=== PATIENT | female | born 1995 | race African-American/Black ===

== ENCOUNTER 2016-06-26 19:11 | Emergency (ER) | payer OTHER ==
[~2016-06-26] VITALS: Ht 170.2 cm; Wt 50.0 kg
[2016-06-26 19:13] VITALS: BP 101/65; PULSE 98; RESP 14; TEMP 98.7; O2SAT 100
--- NOTE | 2016-06-26 19:22 | PD ---
Physical Exam Date Seen by Provider: June 26, 2016 Time Seen by Provider: 19:21 Narrative 20 YOBF N/V, ABD PAIN,SORE THROAT FOR THE PAST 2 DAYS. LMP 06/21/16 VSS AWAITING BED PLACEMENT Data Data Last Documented VS Vital Signs Date Time Temp Pulse Resp B/P Pulse Ox O2 Delivery O2 Flow Rate FiO2 06/26/16 19:13 98.7 98 14 101/65 100 Room Air MDM Medical Record Reviewed: No Supervised Visit with SAJAN: Tj Coleman June 26, 2016 19:22
[2016-06-26] MEDS ORDERED: SODIUM CHLORIDE 0.9% FLUSH 10 ML FLUSH IV FLUSH PRN (20:00)
[2016-06-26] MEDS ORDERED: FAMOTIDINE 20 MG/2 ML VIAL IV PUSH ONE (20:00)
[2016-06-26] MEDS ORDERED: ALUMINUM/MAGNESIUM/SIMETH 30 ML CUP PO ONE (20:00)
[2016-06-26] MEDS ORDERED: LIDOCAINE VISCOUS 2% SOLN 15 ML UDC PO ONE (20:00)
[2016-06-26] MEDS ORDERED: ONDANSETRON HCL 4 MG/2 ML VIAL IVP ONE (20:00)
--- NOTE | 2016-06-26 20:30 | PD ---
HPI Chief Complaint: GI Complaint Time Seen by Provider: 19:50 Travel History International Travel<30 days: No Contact w/Intl Traveler<30days: No Traveled to known affect area: No History of Present Illness HPI 20 YOBF presents with a 3 day hx of nausea, vomiting, and mild mid-abdominal pain. She reports the symptoms started with nausea after eating potato salad at work 3 days ago & progressed to several episodes of vomiting for the last 2 days. She describes the pain as dull & mild in nature, worse after eating meals. She denies fever, chills, urinary symptoms, diarrhea, or back pain. Denies any PMH, No surgical history. PFSH Past Medical History ?: Not LMP: 06/21/16 Social History Tobacco Use: No Allergies-Medications (Allergen,Severity, Reaction): Coded Allergies: No Known Allergies (Unverified , 06/26/16) Reported Meds & Prescriptions Reported Meds & Active Scripts Active Zantac (Ranitidine HCl) 150 Mg Tab 150 Mg PO BID Review of Systems Except as stated in HPI: all other systems reviewed are Neg Physical Exam Narrative GENERAL: Well appearing, no distress SKIN: Warm and dry. HEAD: Normocephalic. EYES: No scleral icterus. No injection or drainage. NECK: Supple, trachea midline. No JVD or lymphadenopathy. CARDIOVASCULAR: Regular rate and rhythm without murmurs, gallops, or rubs. RESPIRATORY: Breath sounds equal bilaterally. No accessory muscle use. GASTROINTESTINAL: Abdomen soft, nondistended, mild tenderness in mid epigastric region, no rebound, no guarding. MUSCULOSKELETAL: No cyanosis, or edema. BACK: Nontender without obvious deformity. No CVA tenderness. Data Data Last Documented VS Vital Signs Date Time Temp Pulse Resp B/P Pulse Ox O2 Delivery O2 Flow Rate FiO2 06/26/16 19:13 98.7 98 14 101/65 100 Room Air Orders Complete Blood Count With Diff (06/26/16 19:55) Comprehensive Metabolic Panel (06/26/16 19:55) Lipase (06/26/16 19:55) Iv Access Insert/Monitor (06/26/16 19:55) Ondansetron Inj (Zofran Inj) (06/26/16 20:00) Sodium Chloride 0.9% Flush (Ns Flush) (06/26/16 20:00) Famotidine Inj (Pepcid Inj) (06/26/16 20:00) Al-Mag Hy-Si 40-40-4 Mg/Ml Liq (Mag-Al P (06/26/16 20:00) Lidocaine 2% Viscous (Xylocaine 2% Visco (06/26/16 20:00) Ed Urine Pregnancytest Poc (06/26/16 19:55) Potassium Chloride (Kcl) (06/26/16 21:15) Labs Laboratory Tests Test 06/26/16 20:01 White Blood Count 9.0 TH/MM3 Red Blood Count 4.25 MIL/MM3 Hemoglobin 12.7 GM/DL Hematocrit 36.2 % Mean Corpuscular Volume 85.2 FL Mean Corpuscular Hemoglobin 29.9 PG Mean Corpuscular Hemoglobin 35.0 % Concent Red Cell Distribution Width 13.1 % Platelet Count 273 TH/MM3 Mean Platelet Volume 8.6 FL Neutrophils (%) (Auto) 70.9 % Lymphocytes (%) (Auto) 18.6 % Monocytes (%) (Auto) 8.8 % Eosinophils (%) (Auto) 1.5 % Basophils (%) (Auto) 0.2 % Neutrophils # (Auto) 6.4 TH/MM3 Lymphocytes # (Auto) 1.7 TH/MM3 Monocytes # (Auto) 0.8 TH/MM3 Eosinophils # (Auto) 0.1 TH/MM3 Basophils # (Auto) 0.0 TH/MM3 CBC Comment DIFF FINAL Differential Comment Sodium Level 140 MEQ/L Potassium Level 3.1 MEQ/L Chloride Level 104 MEQ/L Carbon Dioxide Level 26.3 MEQ/L Anion Gap 10 MEQ/L Blood Urea Nitrogen 6 MG/DL Creatinine 0.81 MG/DL Estimat Glomerular Filtration 110 ML/MIN Rate Random Glucose 92 MG/DL Calcium Level 8.7 MG/DL Total Bilirubin 0.4 MG/DL Aspartate Amino Transf 16 U/L (AST/SGOT) Alanine Aminotransferase 11 U/L (ALT/SGPT) Alkaline Phosphatase 69 U/L Total Protein 7.7 GM/DL Albumin 3.5 GM/DL Lipase 86 U/L [facility] Medical Decision Making Medical Screen Exam Complete: Yes Emergency Medical Condition: Yes Medical Record Reviewed: Yes Differential Diagnosis GERD vs PUD vs cholecystitis Narrative Course 20 YO female with 3 day hx of N/V & mild epigastric abd pain. Patient is well appearing & exam is benign with the exception of mild epigastric tenderness. IV access obtained, labs: CBC, CMP, Lipase pending. Zofran, pepcid & GI cocktail ordered. CBC unremarkable, CMP & lipase pending. Attending Physician Dr. Garcia will follow & disposition patient. Scripts Ranitidine (Zantac)150 Mg [id number] Mg PO BID #60 TAB Ref 0 Prov:Shaniqua Bourgeois MD 06/26/16 Rani Hernandez June 26, 2016 20:30
[2016-06-26 20:34] LABS: AUTOMATED NEUTROPHIL # 6.4 TH/MM3 (1.8-7.7); BASOPHIL % 0.2 % (0.0-2.0); EOSINOPHIL # 0.1 TH/MM3 (0-0.4); EOSINOPHIL % 1.5 % (0.0-4.0); HEMATOCRIT 36.2 % (35.0-46.0); HEMO FLAGS DIFF FINAL; LYMPH % 18.6 % (9.0-44.0); LYMPHOCYTE # 1.7 TH/MM3 (1.0-4.8); MEAN CELL VOLUME 85.2 FL (80.0-100.0); MEAN CORPUSCULAR HEMOGLOBIN 29.9 PG (27.0-34.0); MONO % 8.8 % (0.0-8.0); NEUT % 70.9 % (16.0-70.0); PLATELET COUNT 273 TH/MM3 (150-450); RED BLOOD COUNT 4.25 MIL/MM3 (4.00-5.30); RED CELL DISTRIBUTION WIDTH 13.1 % (11.6-17.2)
[2016-06-26 21:04] LABS: ANION GAP 10 MEQ/L (5-15); AST (GOT) 16 U/L (16-38); BICARBONATE 26.3 MEQ/L (21.0-32.0); BLOOD UREA NITROGEN 6 MG/DL (7-18); CHLORIDE 104 MEQ/L (98-107); GLOMERULAR FILTRATION RATE 110 ML/MIN (>89); POTASSIUM 3.1 MEQ/L (3.5-5.1); SODIUM (NA) 140 MEQ/L (136-145)
[2016-06-26 21:07] LABS: ALKALINE PHOSPHATASE 69 U/L (45-117); ALT (GPT) 11 U/L (9-42); TOTAL BILIRUBIN ADULT 0.4 MG/DL (0.2-1.0)
[2016-06-26] MEDS ORDERED: ZANT150T2 PO (21:12)
--- NOTE | 2016-06-26 21:12 | PD ---
Data Data Last Documented VS Vital Signs Date Time Temp Pulse Resp B/P Pulse Ox O2 Delivery O2 Flow Rate FiO2 06/26/16 19:13 98.7 98 14 101/65 100 Room Air Orders Complete Blood Count With Diff (06/26/16 19:55) Comprehensive Metabolic Panel (06/26/16 19:55) Lipase (06/26/16 19:55) Iv Access Insert/Monitor (06/26/16 19:55) Ondansetron Inj (Zofran Inj) (06/26/16 20:00) Sodium Chloride 0.9% Flush (Ns Flush) (06/26/16 20:00) Famotidine Inj (Pepcid Inj) (06/26/16 20:00) Al-Mag Hy-Si 40-40-4 Mg/Ml Liq (Mag-Al P (06/26/16 20:00) Lidocaine 2% Viscous (Xylocaine 2% Visco (06/26/16 20:00) Ed Urine Pregnancytest Poc (06/26/16 19:55) Labs Laboratory Tests Test 06/26/16 20:01 White Blood Count 9.0 TH/MM3 Red Blood Count 4.25 MIL/MM3 Hemoglobin 12.7 GM/DL Hematocrit 36.2 % Mean Corpuscular Volume 85.2 FL Mean Corpuscular Hemoglobin 29.9 PG Mean Corpuscular Hemoglobin 35.0 % Concent Red Cell Distribution Width 13.1 % Platelet Count 273 TH/MM3 Mean Platelet Volume 8.6 FL Neutrophils (%) (Auto) 70.9 % Lymphocytes (%) (Auto) 18.6 % Monocytes (%) (Auto) 8.8 % Eosinophils (%) (Auto) 1.5 % Basophils (%) (Auto) 0.2 % Neutrophils # (Auto) 6.4 TH/MM3 Lymphocytes # (Auto) 1.7 TH/MM3 Monocytes # (Auto) 0.8 TH/MM3 Eosinophils # (Auto) 0.1 TH/MM3 Basophils # (Auto) 0.0 TH/MM3 CBC Comment DIFF FINAL Differential Comment Sodium Level 140 MEQ/L Potassium Level 3.1 MEQ/L Chloride Level 104 MEQ/L Carbon Dioxide Level 26.3 MEQ/L Anion Gap 10 MEQ/L Blood Urea Nitrogen 6 MG/DL Creatinine 0.81 MG/DL Estimat Glomerular Filtration 110 ML/MIN Rate Random Glucose 92 MG/DL Calcium Level 8.7 MG/DL Total Bilirubin 0.4 MG/DL Aspartate Amino Transf 16 U/L (AST/SGOT) Alanine Aminotransferase 11 U/L (ALT/SGPT) Alkaline Phosphatase 69 U/L Total Protein 7.7 GM/DL Albumin 3.5 GM/DL Lipase 86 U/L MDM Supervised Visit with SAJAN: Yes Narrative Course I, Dr. Bourgeois, have reviewed the advance practice practioner's documentation and am in agreement, met with the patient face to face, made the diagnosis, and the medical decision making was done by me. *My assessment and Findings: 20-year-old female with 3 days of epigastric abdominal pain, nausea, vomiting here after eating potato salad. Mild epigastric tenderness on exam. Differential includes gastritis, pancreatitis and less likely hepatobiliary pathology. Laboratory workup notable for mild hypokalemia, replaced and discharged home with antacid after she felt improved with same here. Diagnosis Primary Impression: Gastritis Qualified Code: K29.00 - Acute gastritis without hemorrhage, unspecified gastritis type Additional Impression: Hypokalemia Referrals: Primary Care Physician as needed Additional Instruction: Antacid as prescribed. Med/Other Pt SpecificInfo: Prescription(s) given Scripts Ranitidine (Zantac)150 Mg [id number] Mg PO BID #60 TAB Ref 0 Prov:Shaniqua Bourgeois MD 06/26/16 Disposition: 01 DISCHARGE HOME Condition: Stable Shaniqua Bourgeois MD June 26, 2016 21:12
[2016-06-26] MEDS ORDERED: POTASSIUM CHLORIDE 20 MEQ CONTROLLED RELEASE TAB PO ONE (21:15)
== END 2016-06-26 21:54 | disposition home or self-care (01) ==
LOC: NEPD 19:11
DX: K29.70 Gastritis, unspecified, without bleeding (principal); E87.6 Hypokalemia; J02.9 Acute pharyngitis, unspecified
CPT/HCPCS: 80053; 83690; 84703; 85025; 96374; 96375; 99284; J2405

== ENCOUNTER 2017-03-15 19:58 | Emergency (ER) | payer SELFPAY ==
[~2017-03-15] VITALS: Ht 170.2 cm; Wt 51.4 kg
[~2017-03-15 19:58] MED LIST: ZANT150T2 PO
[2017-03-15 19:59] VITALS: BP 120/64; PULSE 85; RESP 16; TEMP 98.3; O2SAT 97
--- NOTE | 2017-03-16 00:41 | PD ---
HPI Chief Complaint: Abdominal Pain Time Seen by Provider: 00:37 Travel History International Travel<30 days: No Contact w/Intl Traveler<30days: No Traveled to known affect area: No History of Present Illness HPI 21-year-old female presents to the emergency department by private transportation for complaint of headache nausea abdominal pain and generalized weakness 3 days. Patient denies fever chills vomiting sore throat earache cough congestion chest pain flank pain generalized abdominal pain pelvic pain dysuria frequency urgency hematuria vaginal discharge or vaginal bleeding. Last menstrual period was 02/05/17 and normal for her but has irregular menses. Patient rates her discomfort is moderate and has taken no medications including no acetaminophen or ibuprofen as she does not have any of these medications at home. Patient has had no vomiting. Patient denies diarrhea. Patient denies dietary indiscretion well water ingestion or foreign travel. Patient also denies history of ovarian cyst or endometriosis. Patient's had no anorexia. PFSH Past Medical History Narrative Medical Negative past history negative surgical history; no tobacco use alcohol use; no notes reviewed Medical History: Denies Significant Hx Diminished Hearing: No ?: Unknown Past Surgical History Surgical History: No Previous Surgery Social History Alcohol Use: No Tobacco Use: No Substance Use: No Allergies-Medications (Allergen,Severity, Reaction): Coded Allergies: No Known Allergies (Unverified , 06/26/16) Reported Meds & Prescriptions Reported Meds & Active Scripts Active Zantac (Ranitidine HCl) 150 Mg Tab 150 Mg PO BID Review of Systems Except as stated in HPI: all other systems reviewed are Neg General / Constitutional: No: Fever, Chills HENT: No: Sore Throat, Congestion Cardiovascular: No: Chest Pain or Discomfort Respiratory: No: Shortness of Breath Gastrointestinal: Positive: Nausea, Abdominal Pain, No: Vomiting, Diarrhea Genitourinary: No: Urgency (her lower quadrant tenderness), Frequency, Dysuria , Hematuria, Pelvic Pain, Flank Pain, Discharge, Vaginal Bleeding Musculoskeletal: No: Myalgias, Arthralgias Skin: No Rash Neurologic: No: Weakness Psychiatric: No: Anxiety Hematologic/Lymphatic: No: Lymph Node Enlargement Physical Exam Narrative GENERAL: Well-developed well-nourished male in no acute distress no respiratory distress SKIN: Warm and dry. HEAD: Normocephalic. EYES: No scleral icterus. No injection or drainage. NECK: Supple, trachea midline. No JVD or lymphadenopathy. CARDIOVASCULAR: Regular rate and rhythm without murmurs, gallops, or rubs. RESPIRATORY: Breath sounds equal bilaterally. No accessory muscle use. GASTROINTESTINAL: Abdomen soft, non-tender, nondistended. MUSCULOSKELETAL: No cyanosis, or edema. BACK: Nontender without obvious deformity. No CVA tenderness. Data Data Last Documented VS Vital Signs Date Time Temp Pulse Resp B/P (MAP) Pulse Ox O2 Delivery O2 Flow Rate FiO2 03/16/17 01:34 16 97 Room Air 03/15/17 19:59 98.3 85 Orders Orders Complete Blood Count With Diff (03/16/17 00:38) Comprehensive Metabolic Panel (03/16/17 00:38) Urinalysis - C+S If Indicated (03/16/17 00:38) Iv Access Insert/Monitor (03/16/17 00:38) Ecg Monitoring (03/16/17 00:38) Oximetry (03/16/17 00:38) Sodium Chloride 0.9% Flush (Ns Flush) (03/16/17 00:45) Ed Urine Pregnancytest Poc (03/16/17 00:38) Orthostatic Vital Signs (03/16/17 00:38) Blood Glucose (03/16/17 00:38) Ondansetron Inj (Zofran Inj) (03/16/17 00:45) Ketorolac Inj (Toradol Inj) (03/16/17 03:00) Potassium Chloride (Kcl) (03/16/17 03:00) Ed Discharge Order (03/16/17 02:51) Labs Laboratory Tests Test 03/16/17 00:48 White Blood Count 7.1 TH/MM3 Red Blood Count 4.51 MIL/MM3 Hemoglobin 13.4 GM/DL Hematocrit 39.1 % Mean Corpuscular Volume 86.6 FL Mean Corpuscular Hemoglobin 29.7 PG Mean Corpuscular Hemoglobin Concent 34.3 % Red Cell Distribution Width 13.0 % Platelet Count 322 TH/MM3 Mean Platelet Volume 8.1 FL Neutrophils (%) (Auto) 49.8 % Lymphocytes (%) (Auto) 42.3 % Monocytes (%) (Auto) 6.6 % Eosinophils (%) (Auto) 0.9 % Basophils (%) (Auto) 0.4 % Neutrophils # (Auto) 3.5 TH/MM3 Lymphocytes # (Auto) 3.0 TH/MM3 Monocytes # (Auto) 0.5 TH/MM3 Eosinophils # (Auto) 0.1 TH/MM3 Basophils # (Auto) 0.0 TH/MM3 CBC Comment DIFF FINAL Differential Comment Urine Color YELLOW Urine Turbidity HAZY Urine pH 5.5 Urine Specific [place] 1.025 Urine Protein TRACE mg/dL Urine Glucose (UA) NEG mg/dL Urine Ketones NEG mg/dL Urine Occult Blood NEG Urine Nitrite NEG Urine Bilirubin NEG Urine Urobilinogen LESS THAN 2.0 MG/DL Urine Leukocyte Esterase TRACE Urine RBC 1 /hpf Urine WBC 1 /hpf Urine Squamous Epithelial Cells 4 /hpf Urine Bacteria RARE /hpf Urine Mucus FEW /lpf Microscopic Urinalysis Comment CULT NOT INDICATED Blood Urea Nitrogen 8 MG/DL Creatinine 0.65 MG/DL Random Glucose 84 MG/DL Total Protein 8.3 GM/DL Albumin 4.2 GM/DL Calcium Level 8.9 MG/DL Alkaline Phosphatase 74 U/L Aspartate Amino Transf (AST/SGOT) 14 U/L Alanine Aminotransferase (ALT/SGPT) 9 U/L Total Bilirubin 0.3 MG/DL Sodium Level 140 MEQ/L Potassium Level 3.0 MEQ/L Chloride Level 106 MEQ/L Carbon Dioxide Level 23.1 MEQ/L Anion Gap 11 MEQ/L Estimat Glomerular Filtration Rate 141 ML/MIN [facility] Medical Decision Making Medical Screen Exam Complete: Yes Emergency Medical Condition: Yes Medical Record Reviewed: Yes Differential Diagnosis Abdominal pain, ruptured ovarian cyst, ectopic , UTI, renal colic, perforated skeletal pain, mittelschmerz, atypical appendicitis, viral syndrome, dehydration Narrative Course IV access obtained specimens collected and sent for resulting Diagnosis Primary Impression: Gastritis Additional Impression: Hypokalemia Referrals: Primary Care Physician call for appointment Patient Instructions: General Instructions Additional Instructions: Follow-up with primary care provider Return to the emergency department for a concerns or change in condition May use [id number] acetaminophen/Tylenol or ibuprofen/Advil/Motrin per package instructions Add potassium containing foods to beverages in dietary intake Med/Other Pt SpecificInfo: No Meds Exist/No RX given Disposition: 01 DISCHARGE HOME Condition: Stable Jennifer Byrnes MD Mar 16, 2017 00:41
[2017-03-16] MEDS ORDERED: SODIUM CHLORIDE 0.9% FLUSH 10 ML FLUSH IV FLUSH PRN (00:45)
[2017-03-16] MEDS ORDERED: ONDANSETRON HCL 4 MG/2 ML VIAL IV PUSH ONE (00:45)
[2017-03-16 01:06] LABS: AUTOMATED NEUTROPHIL # 3.5 TH/MM3 (1.8-7.7); BASOPHIL % 0.4 % (0.0-2.0); EOSINOPHIL # 0.1 TH/MM3 (0-0.4); EOSINOPHIL % 0.9 % (0.0-4.0); HEMATOCRIT 39.1 % (35.0-46.0); HEMOGLOBIN 13.4 GM/DL (11.6-15.3); LYMPH % 42.3 % (9.0-44.0); MEAN CELL VOLUME 86.6 FL (80.0-100.0); MEAN CORPUSCULAR HEMOGLOBIN 29.7 PG (27.0-34.0); MEAN CORPUSCULAR HGB CONC 34.3 % (32.0-36.0); MEAN PLATELET VOLUME 8.1 FL (7.0-11.0); MONO % 6.6 % (0.0-8.0); MONOCYTE # 0.5 TH/MM3 (0-0.9); NEUT % 49.8 % (16.0-70.0); PLATELET COUNT 322 TH/MM3 (150-450); RED BLOOD COUNT 4.51 MIL/MM3 (4.00-5.30); WHITE BLOOD COUNT 7.1 TH/MM3 (4.0-11.0)
[2017-03-16 01:23] LABS: BACTERIA, URINE RARE /hpf; BILIRUBIN, URINE NEG (NEG); BLOOD, URINE NEG (NEG); GLUCOSE,URINE NEG (NEG); KETONE, URINE NEG (NEG); MUCUS URINE FEW /lpf (OCC); NITRITE,URINE NEG (NEG); PH, URINE 5.5 (5.0-8.5); SQUAMOUS EPITHELIAL CELL URINE 4 /hpf (0-5); URINE COLOR YELLOW (YELLW/STRAW); URINE LEUKOCYTE ESTERASE TRACE (NEG)
[2017-03-16 01:34] VITALS: RESP 16; O2SAT 97
[2017-03-16 02:15] LABS: ALBUMIN 4.2 GM/DL (3.4-5.0); ALT (GPT) 9 U/L (9-42); AST (GOT) 14 U/L (16-38); BICARBONATE 23.1 MEQ/L (21.0-32.0); BLOOD UREA NITROGEN 8 MG/DL (7-18); CALCIUM 8.9 MG/DL (8.5-10.1); CHLORIDE 106 MEQ/L (98-107); CREATININE 0.65 MG/DL (0.50-1.00); GLOMERULAR FILTRATION RATE 141 ML/MIN (>89); GLUCOSE,RANDOM 84 MG/DL (74-106); SODIUM (NA) 140 MEQ/L (136-145)
[2017-03-16 02:17] LABS: ALKALINE PHOSPHATASE 74 U/L (45-117); TOTAL BILIRUBIN ADULT 0.3 MG/DL (0.2-1.0); TOTAL PROTEIN 8.3 GM/DL (6.4-8.2)
[2017-03-16] MEDS ORDERED: POTASSIUM CHLORIDE 20 MEQ CONTROLLED RELEASE TAB PO ONE (03:00)
[2017-03-16] MEDS ORDERED: KETOROLAC TROMETHAMINE 30 MG/ML (IVP) VIAL IV PUSH ONE (03:00)
[2017-03-16 03:15] VITALS: BP 122/60
== END 2017-03-16 03:16 | disposition home or self-care (01) ==
LOC: NEPC 19:58
DX: K29.70 Gastritis, unspecified, without bleeding (principal); E87.6 Hypokalemia
CPT/HCPCS: 80053; 81001; 84703; 85025; 96374; 96375; 99283; J1885; J2405